=== PATIENT | male | born 1970 | race Caucasian/White ===

== ENCOUNTER 2018-07-31 14:40 | Emergency (ER) | payer BC, MEDICAID, OTHER ==
[~2018-07-31] VITALS: Ht 177.8 cm; Wt 95.3 kg
[2018-07-31 14:40] VITALS: BP 132/76
== END 2018-07-31 15:18 | disposition home or self-care (01) ==
LOC: ER 14:41
DX: H10.9 Unspecified conjunctivitis (principal); F17.200 Nicotine dependence, unspecified, uncomplicated; Z88.8 Allergy status to other drugs, medicaments and biological substances; Z91.018 Allergy to other foods
CPT/HCPCS: A4606; Z7610

== ENCOUNTER 2019-08-07 19:10 | Emergency (ER) | payer OTHER ==
[~2019-08-07] VITALS: Ht 177.8 cm; Wt 97.5 kg
[2019-08-07 19:56] VITALS: BP 148/103
== END 2019-08-07 20:17 | disposition home or self-care (01) ==
LOC: ER 19:13
DX: H10.13 Acute atopic conjunctivitis, bilateral (principal); K90.0 Celiac disease; Z88.8 Allergy status to other drugs, medicaments and biological substances; Z91.018 Allergy to other foods

== ENCOUNTER 2022-06-06 23:25 | Emergency (ER) | payer OTHER ==
[~2022-06-06] VITALS: Ht 177.8 cm; Wt 99.8 kg
[2022-06-07 00:41] VITALS: BP 167/101
[2022-06-07] MEDS ORDERED: CEPH250C PO (01:01)
[2022-06-07] MEDS ORDERED: PRED20TA PO (01:01)
== END 2022-06-07 01:17 | disposition home or self-care (01) ==
LOC: ER 23:35
DX: L30.9 Dermatitis, unspecified (principal); R03.0 Elevated blood-pressure reading, without diagnosis of hypertension; F17.210 Nicotine dependence, cigarettes, uncomplicated; Z88.8 Allergy status to other drugs, medicaments and biological substances; Z79.899 Other long term (current) drug therapy